=== PATIENT | male | born 1995 | race Caucasian/White ===

== ENCOUNTER 2023-01-22 16:15 | Emergency (ER) | payer OTHER ==
[2023-01-22] MEDS ORDERED: Ondansetron PF 4 MG/2 ML Vial ONE (16:49)
[2023-01-22 17:24] LABS: #Basophils 0.1 10x3/uL (0.0-0.2); #Eosinphils 0.1 10x3/uL (0.0-0.5); #Monocytes 0.4 10x3/uL (0.0-1.1); #Neutrophils 8.8 10x3/uL (1.5-8.4); %Basophils 0.6 % (0.0-2.0); %Eosinophils 0.5 % (0.0-6.0); %Lymphocytes 9.9 % (18.0-47.0); %Monocytes 3.7 % (0.0-10.0); Hematocrit 42.4 % (38.8-50.0); Hemoglobin 14.2 g/dL (13.5-17.5); Mean Corpuscular HGB CONC 33.5 g/dL (32.0-36.0); Mean Corpuscular Hemoglobin 29.8 pg (27.0-33.0); Mean Corpuscular Volume 88.9 fl (81.2-95.1); Mean Platelet Volume 10.9 fl (7.4-10.4); Platelet Count 286 10x3/uL (150-450); RBC Distribution Width 12.4 % (11.5-14.5); Red Blood Cell (RBC) Count 4.77 10x6/uL (4.32-5.72); White Blood Cell (WBC) Count 10.4 10x3/uL (3.5-10.5)
[2023-01-22 17:34] LABS: ALT (SGPT) 26 U/L (8-55); AST (SGOT) 36 U/L (5-34); Albumin 4.5 g/dL (3.5-5.0); Alkaline Phosphatase 86 U/L (40-110); Anion Gap 22 mmol/L (10-20); BUN (Urea Nitrogen) 21 mg/dL (8.9-20.6); Bilirubin, Total 0.6 mg/dL (0.2-1.2); Calc. Creatinine Clearance 0 mL/min (70-130); Calcium 9.5 mg/dL (7.8-10.44); Carbon Dioxide 18 mmol/L (22-29); Chloride 98 mmol/L (98-107); Estimated GFR 92; Lipase 5 U/L (8-78); Potassium 4.3 mmol/L (3.5-5.1); Protein, Total 7.5 g/dL (6.0-8.3); Sodium 134 mmol/L (136-145)
[2023-01-22 17:39] LABS: Glucose 435 mg/dL (70-105)
[2023-01-22 17:40] LABS: Troponin I Less than 0.010 ng/mL (< 0.028)
[2023-01-22 17:49] LABS: SARS-CoV-2 NAA Rapid Test Not Detected (NotDetected)
[2023-01-22] MEDS ORDERED: INSULIN REGULAR IN 0.9 % NACL 100 UNITS/100 ML BAG ONE (17:55)
[2023-01-22 18:24] LABS: Actual Bicarbonate (HCO3v) 20.7 mEq/L (22-28); Analyzer IN Cardio CS ER; Base Excess -4.2 mEq/L (-2 - +2); Calcium, Ionized (venous) 1.14 mmol/L (1.16-1.32); Chloride (VBG) 98 mmol/L (98-106); Hematocrit-VBG 44 % (42.0-52.0); Hemoglobin (Hb) 15.1 g/dL (13.2-17.3); Potassium (VBG) 4.21 mmol/L (3.70-5.30); Puncture Site Other Site; RapidComm Collect By cbn; Sodium 137 mmol/L (133-146); pH (venous) 7.358 (7.32-7.43)
[2023-01-22] MEDS ORDERED: NS 0.9% w/ 20 MEQ KCL 1,000 ML ONE (20:16)
[2023-01-22 20:56] LABS: Bilirubin Neg (Negative); Blood, Urine Negative (Negative); Clarity Clear (Clear); Glucose, Urine (Dipstick) >=1000 mg/dL (Negative); Ketone, Urine 150 mg/dL (Negative); Leukocyte Negative (Negative); Nitrite Negative (Negative); Protein, Urine (Dipstick) 30 mg/dl (Neg-Trace); Specific Gravity, Urine 1.015 (1.005-1.030); Urobilinogen Normal mg/dL (Less than 2)
[2023-01-22 21:17] LABS: Bacteria/HPF None Seen HPF (None Seen); CAUTI Indications for Culture Alt mental st,lethar; RBC/HPF None Seen HPF (0-3); Squamous Epithelial 0-3 HPF (0-3); WBC/HPF None Seen HPF (0-3)
[2023-01-22 21:18] LABS: Urine Culture Reflex No No
[2023-01-22 21:31] LABS: Anion Gap 16 mmol/L (10-20); BUN (Urea Nitrogen) 18 mg/dL (8.9-20.6); Calc. Creatinine Clearance 0 mL/min (70-130); Calcium 8.8 mg/dL (7.8-10.44); Carbon Dioxide 21 mmol/L (22-29); Chloride 107 mmol/L (98-107); Estimated GFR 123; Glucose 190 mg/dL (70-105); Potassium 4.5 mmol/L (3.5-5.1); Sodium 139 mmol/L (136-145)
[2023-01-22] MEDS ORDERED: Dextrose 50% Abboject 50 ML SYRINGE ONE (22:16)
[2023-01-22] MEDS ORDERED: D5 1/2 NS w/20 mEq KCL 1,000 ML ONE (22:18)
== END 2023-01-22 22:43 | disposition left against medical advice (07) ==
LOC: CSHERS 16:15
DX: E10.10 Type 1 diabetes mellitus with ketoacidosis without coma (principal); I10 Essential (primary) hypertension; E03.9 Hypothyroidism, unspecified; Z79.899 Other long term (current) drug therapy
CPT/HCPCS: 36415; 36416; 71045; 80053; 81001; 82805; 83690; 83735; 84484; 85025; 87040; 93005; 96374; 96375; J1815; J2405; J3480; J7999